=== PATIENT | male | born 1955 | race American Indian/Alaskan Native ===

== ENCOUNTER 2016-11-29 16:28 | Inpatient (IN) | payer MEDICAID ==
[2016-11-29 16:28] VITALS: BMI 34.8
--- NOTE | 2016-11-29 16:36 | ED PDOC ---
Arrival/HPI - General Time Seen by Provider: 11/29/16 16:35 Historian: Patient - History of Present Illness Narrative History of Present Illness (Text): 11/29/16 16:36 This 61 yo male with pmh dm, htn, chronic leg swelling, presents to this ED c/o feeling generalized weakness, night sweats x 2 weeks. Patient stated symptoms has worsen last 7 days. Patient noted an Epidural injection on his lower back x 3 weeks ago. Patient stated he was feeling very weak, and dizzy that he almost "pass out" earlier today. Patient also stated GLEZ after climbing a few steps on his stairs. He noted a mild left lower back pain. Patient noted that he has never had a Nuclear stress test yet. Patient denies recent travel, cp, DEE, urinary symptoms, abdominal pain, n/v, cms , /GI incontinence, saddle anesthesia, urinary retention, rectal bleeding, hematuria, chills, sick contact, or trauma. Time/Duration: Other (see hpi) Context: Home Past Medical History - Provider Review Nursing Documentation Reviewed: Yes - Cardiac Hx Hypertension: Yes - Psychiatric Hx Substance Use: No Family/Social History - Physician Review Nursing Documentation Reviewed: Yes Family/Social History: Other (non-contributory) Smoking Status: no Hx Alcohol Use: No Hx Substance Use: No Allergies/Home Meds Allergies/Adverse Reactions: Allergies Iodine and Iodide Containing Produc Allergy (Verified 11/29/16 16:52) ANAPHYLAXIS shellfish derived Allergy (Verified 11/29/16 16:52) ANAPHYLAXIS Home Medications: Home Meds Medication Instructions Recorded Confirmed Unobtainable 11/29/16 11/29/16 Review of Systems - Review of Systems Constitutional: Normal. absent: Fatigue, Weight Change, Fevers, Night Sweats Eyes: Normal ENT: Normal Respiratory: Normal. absent: SOB, Cough Cardiovascular: GLEZ, Syncope (near syncope). absent: Chest Pain, Palpitations, Edema, Calf Pain, Orthopnea Gastrointestinal: Normal. absent: Abdominal Pain, Nausea, Vomiting Genitourinary Male: Normal. absent: Dysuria, Frequency, Hematuria Musculoskeletal: Back Pain. absent: Neck Pain Skin: Normal. absent: Rash Neurological: Dizziness, Other (generalized weakness). absent: Headache, Gait Changes, Speech Changes, Facial Droop, Disequilibrium, Seizure Endocrine: Normal Hemo/Lymphatic: Normal Psychiatric: Normal Physical Exam Vital Signs Temp Pulse Resp BP Pulse Ox 11/29/16 21:17 95 H 18 150/84 98 11/29/16 19:38 98 H 18 148/93 H 97 11/29/16 18:57 97.2 F L 11/29/16 16:36 97.5 F L 108 H 16 156/81 H 96 Temperature: Afebrile Blood Pressure: Normal Pulse: Regular Respiratory Rate: Normal Appearance: Positive for: Well-Appearing, Non-Toxic, Comfortable Pain Distress: None Mental Status: Positive for: Alert and Oriented X 3 - Systems Exam Head: Present: Atraumatic, Normocephalic Pupils: Present: PERRL Extroacular Muscles: Present: EOMI Conjunctiva: Present: Normal Mouth: Present: Moist Mucous Membranes Pharnyx: Present: Normal. No: ERYTHEMA, EXUDATE, TONSILS ENLARGED Neck: Present: Normal Range of Motion. No: Meningeal Signs, MIDLINE TENDERNESS , Paraspinal Tenderness, Lymphadenopathy Respiratory/Chest: Present: Clear to Auscultation, Good Air Exchange. No: Respiratory Distress, Accessory Muscle Use, Wheezes, Retracting, Rhonchi Cardiovascular: Present: Regular Rate and Rhythm, Normal S1, S2. No: Murmurs Abdomen: Present: Normal Bowel Sounds. No: Tenderness, Distention, Peritoneal Signs, Rebound, Guarding Back: Present: Normal Inspection. No: CVA Tenderness, Midline Tenderness, Paraspinal Tenderness Upper Extremity: Present: Normal Inspection, Normal ROM, Neurovascularly Intact , Capillary Refill < 2s. No: Cyanosis, Edema Lower Extremity: Present: Normal Inspection, Edema (b/l trace edema), NORMAL PULSES, Normal ROM, Neurovascularly Intact, Capillary Refill < 2 s. No: CALF TENDERNESS, Cyanosis, Donna's Sign, Tenderness, Swelling, Erythema Neurological: Present: GCS=15, CN II-XII Intact, Speech Normal, Motor Func Grossly Intact, Normal Sensory Function, Normal Cerebellar Funct, Gait Normal Skin: Present: Warm, Dry, Normal Color. No: Rashes Psychiatric: Present: Alert, Oriented x 3, Normal Insight, Normal Concentration Medical Decision Making ED Course and Treatment: 11/29/16 20:[address] Mansfield regarding patient c/o generalized weakness, GLEZ, and near syncope. Labs shows hypokalemia. I also read of L-spine which described a 5.8 mm distal ureter kidney stone. Dr. Mansfield recommended consult for Dr. Green, Nailer Operator, and he agrees for observation Re-evaluation Time: 20:36 Reassessment Condition: Re-examined, Improving,but remains with symptoms - Lab Interpretations Lab Results: 11/29/16 17:00 11/29/16 17:00 Lab Results 11/29/16 20:40: Urine Color Straw, Urine Appearance Clear, Urine pH 6.5, Ur Specific [place] 1.010, Urine Protein Negative, Urine Glucose (UA) Negative, Urine Ketones Negative, Urine Blood Trace-lysed H, Urine Nitrate Negative, Urine Bilirubin Negative, Urine Urobilinogen 0.2, Ur Leukocyte Esterase Negative , Urine RBC 0 - 2, Urine WBC Negative, Ur Epithelial Cells 0 - 2, Urine Bacteria Neg 11/29/16 17:00: Sodium 139, Chloride 103, Potassium 3.3 L, Carbon Dioxide 23, Anion Gap 16, BUN 11, Creatinine 0.8, Est GFR ( Amer) > 60, Est GFR (Non- Af Amer) > 60, Random Glucose 88, Calcium 9.4, Phosphorus 2.4 L, Magnesium 1.8, Total Bilirubin 0.7, AST 57, ALT 56, Alkaline Phosphatase 110, Lactate Dehydrogenase 513, Total Creatine Kinase 164, Troponin I < 0.01, NT-Pro-B Natriuret Pep 29.5, Total Protein 8.0, Albumin 4.3, Globulin 3.7, Albumin/ Globulin Ratio 1.2 11/29/16 17:00: pO2 64 H, VBG pH 7.37, VBG pCO2 45.0, VBG HCO3 26.0, VBG Total CO2 27.4, VBG O2 Sat (Calc) 94.8 H, VBG Base Excess 0.3, VBG Potassium 3.3 L, Sodium 139.0, Chloride 104.0, Glucose 87, Lactate 2.1, FiO2 21.0, Venous Blood Potassium 3.3 L 11/29/16 17:00: PT 11.6, INR 1.07, APTT 27.8 11/29/16 17:00: WBC 9.6, RBC 5.33, Hgb 14.6, Hct 42.7, MCV 80.1, MCH 27.4, MCHC 34.2, RDW 13.2, Plt Count 222, MPV 10.2, Gran % 72.7 H, Lymph % (Auto) 18.4 L, [place] % (Auto) 7.0 H, Eos % (Auto) 1.6, Baso % (Auto) 0.3, Gran # 6.98 H, Lymph # 1.8, [place] # 0.7 H, Eos # 0.2, Baso # 0.03 11/29/16 16:40: POC Glucose (mg/dL) 74 - RAD Interpretation Narrative RAD Interpretations (Text): 11/29/16 18:45 Accession No. : [id number] Patient Name / ID : YUN MADISON / [id number] Exam Date : 11/29/2016 17:50:16 ( Approved ) Study Comment : Sex / Age : M / 61Y Creator : Kelvin Guo MD Dictator : [employer] Cle[employer] Agent : Ehr Trainer : Kelvin Guo MD Approver2 : Report Date : 11/29/2016 18:06:31 My Comment : PROCEDURE: CT scan brain dated 11/29/2016 HISTORY: Dizziness. COMPARISON: No prior study available comparison TECHNIQUE: Axial computed tomography images were obtained through the head/brain without intravenous contrast. Radiation dose: Total exam DLP = 843.77 mGy-cm. This CT exam was performed using one or more of the following dose reduction techniques: Automated exposure control, adjustment of the mA and/or kV according to patient size, and/or use of iterative reconstruction technique. FINDINGS: HEMORRHAGE: No acute parenchymal, subarachnoid or extra-axial hemorrhage. BRAIN: Suspect minor chronic periventricular white matter ischemic changes. Questionable artifact versus a few tiny chronic appearing bilateral basal nuclei lacunar type infarcts Ventricular and sulcal size are within range of normal for this patient's stated age. No obvious parenchymal nor extra-axial masses or collections identified on this noncontrast study. Minor vascular calcifications are present. VENTRICLES: No obstructive hydrocephalus. . Small cavum septum pellucidum and vergae. 1st CALVARIUM: There are no acute calvarial fractures PARANASAL SINUSES: Unremarkable as visualized. No significant inflammatory changes. MASTOID AIR CELLS: Unremarkable as visualized. No inflammatory changes. OTHER FINDINGS: Orbits and contents grossly unremarkable IMPRESSION: No acute intracranial hemorrhage. Suspect minimal chronic periventricular white matter ischemic changes. . Questionable artifact versus a few tiny chronic appearing bilateral basal nuclei lacunar type infarcts 11/29/16 18:46 Accession No. : [id number] Patient Name / ID : YUN MADISON / [id number] Exam Date : 11/29/2016 17:52:19 ( Approved ) Study Comment : Sex / Age : M / 61Y Creator : Lavon COATES Dictator : [employer] Cle[employer] Agent : Ehr Trainer : Kelvin Guo MD Approver2 : Report Date : 11/29/2016 17:59:21 My Comment : PROCEDURE: CT scan lumbar spine dated 11/29/2016 HISTORY: Back pain. COMPARISON: No prior study available for comparison TECHNIQUE: Contiguous helical/transaxial computed tomography images were obtained of the lumbar spine without the use of intravenous contrast. Coronal and sagittal reformatted images were created and reviewed. Radiation dose: Total exam DLP = 1514.16 mGy-cm. This CT exam was performed using one or more of the following dose reduction techniques: Automated exposure control, adjustment of the mA and/or kV according to patient size, and/or use of iterative reconstruction technique. FINDINGS: VERTEBRAE: The current study reveals no acute compression fractures no retropulsed fragments. Aside from minor multilevel fish-mouth endplate deformities, the vertebral bodies exhibit normal stature. Vertebral bodies and facets normally aligned. . DISCS/SPINAL CANAL/NEURAL FORAMINA: L1-2: Disc space height relatively maintained. There are no disc herniations nor significant disc bulges. Central canal and exit foramina adequate. L2-3: Disc space height maintained. There is minor broad-based bulge of the posterior annulus slightly asymmetrically larger on the left than right with some minimal extension into the proximal inferior margin of the left exit foramen. There does appear to be some slight flattening ventral surface of the thecal sac more so on the left side however the central canal appears quite capacious. Facet joints are slightly overgrown. Exit foramina are also adequate. L3-4: Disc space height maintained minimal broad-based bulge of the posterior annulus results in some flattening of the ventral surface of the thecal sac. The overall central canal is quite capacious. Facets joints are slightly overgrown. Proximal exit foramina appear adequate. . . L4-5: Disc space height maintained. Minor broad-based bulge of the posterior annulus also results in some flattening of the ventral surface of thecal sac however the overall central canal is adequate at this level. Facets are mildly hypertrophic more so on the left side. Central canal and exit foramina are adequate. L5-S1: Disc space height maintained. No disc herniation or significant disc bulge. Facets are slightly overgrown. Central canal and exit foramina adequate. . Note made of a small round/ elliptical shaped sclerotic focus within the right knee iliac bone that probably represents a small bone island or osteoma. . Similar smaller focus seen in the left aspect of the sacrum PARASPINAL SOFT TISSUES: Paraspinal soft tissues unremarkable. OTHER FINDINGS: There is a small nonobstructing calcification upper pole right kidney. Due to motion artifact exact size name cannot be determined though this is estimated at approximately 3.5 mm. Additionally, there is a large partially exophytic cyst posterior upper pole left kidney that measures approximately 6.3 cm CC x 5.6 cm AP x 5.1 cm trans. A smaller cyst anteromedial aspect upper pole left kidney is also present measuring approximately 2.84 x 1.8 cm consider followup ultrasound renal ultrasound for further evaluation if necessary. . Note is also made of an approximately 5.8 mm elliptical shaped calculus within the distal left ureter however no significant hydronephrosis identified. Prostate gland appears enlarged measuring approximately 5.44 cm in transverse dimension. IMPRESSION: No acute fractures. Very minor multilevel degenerative spondylosis. . There is a 5.8 mm calculus in the distal left ureter with no significant left- sided hydronephrosis so far as can be seen. There are least 2 left renal cysts. . Small nonobstructing calculus upper pole right kidney Small nonobstructing calculus Radiology Orders: 11/29/16 16:52 CHEST PORTABLE [RAD] Stat 11/29/16 16:54 HEAD W/O CONTRAST [CT] Stat 11/29/16 16:59 LUMBAR SPINE W/O CONTRAST [CT] Stat - EKG Interpretation Interpreted by ED Physician: Yes (Sinus tachycardia @ 112 bpm. Normal interval) Type: 12 lead EKG Comparison: No previous EKG avail. - Medication Orders Current Medication Orders: Discontinued Medications Sodium Chloride (Sodium Chloride 0.9%) 500 mls @ 999 mls/hr IV .Q31M STA Stop: 11/29/16 17:25 Last Admin: 11/29/16 17:35 Dose: 999 mls/hr eMAR Start Stop Document 11/29/16 17:35 (Rec: 11/29/16 17:35 [facility] [id number] Intravenous Solution Start Date 11/29/16 Start Time 17:35 Potassium Chloride (Potassium Chloride Oral Soln) 40 meq PO STAT STA Stop: 11/29/16 17:42 Last Admin: 11/29/16 18:15 Dose: 40 meq Disposition/Present on Arrival - Present on Arrival Any Indicators Present on Arrival: No History of DVT/PE: No History of Uncontrolled Diabetes: No Urinary Catheter: No History Surgical Site Infection Following: None - Disposition Have Diagnosis and Disposition been Completed?: Yes Diagnosis: Near syncope, Generalized weakness, Ureterolithiasis Disposition: HOSPITALIZED Disposition Time: 20:52 Patient Plan: Observation Patient Problems: Current Active Problems Problem Status Onset Generalized weakness Acute Near syncope Acute Ureterolithiasis Acute Condition: STABLE
[2016-11-29] MEDS ORDERED: Sodium Chloride 0.9% 500 ML IV STA (16:55)
[2016-11-29 17:30] LABS: BASO # 0.03 K/mm3 (0.0-2.0); BASO % 0.3 % (0.0-3.0); EOS # 0.2 (0.0-0.7); EOS % 1.6 % (1.5-5.0); GRAN # 6.98 (1.4-6.5); GRAN % 72.7 % (50.0-68.0); HEMATOCRIT 42.7 % (42.0-52.0); LYMPH # 1.8 (1.2-3.4); LYMPH % 18.4 % (22.0-35.0); MEAN CELL VOLUME 80.1 fl (80.0-105.0); MEAN CORPUSCULAR HEMOGLOBIN 27.4 pg (25.0-35.0); MEAN CORPUSCULAR HGB CONC 34.2 g/dl (31.0-37.0); MEAN PLATELET VOLUME 10.2 fl (7.0-11.0); MONO # 0.7 (0.1-0.6); RED CELL DISTRIBUTION WIDTH 13.2 % (11.5-14.5); WHITE BLOOD COUNT 9.6 10^3/ul (4.5-11.0)
[2016-11-29 17:34] LABS: ALB/GLOB RATIO 1.2 (1.1-1.8); ALKALINE PHOSPHATASE 110 U/L (38-126); ALT/SGPT 56 U/L (7-56); AST/SGOT 57 U/L (17-59); BILIRUBIN,TOTAL 0.7 mg/dL (0.2-1.3); BLOOD UREA NITROGEN 11 mg/dL (7-21); CALCIUM 9.4 mg/dL (8.4-10.5); CARBON DIOXIDE 23 mmol/L (21-33); CHLORIDE 103 mmol/L (98-107); GFR AFRICAN-AMERICAN > 60; GLUCOSE,RANDOM 88 mg/dL (70-110); MAGNESIUM 1.8 mg/dL (1.7-2.2); PHOSPHOROUS 2.4 mg/dL (2.5-4.5); POTASSIUM 3.3 mmol/L (3.6-5.0); SODIUM 139 mmol/L (132-148)
[2016-11-29 17:35] LABS: INR 1.07 (0.93-1.08); PARTIAL THROMBOPLASTIN TIME 27.8 Seconds (23.7-30.8)
[2016-11-29 17:37] LABS: VENOUS BLOOD GAS BASE EXCESS 0.3 mmol/L (0.0-2.0); VENOUS BLOOD PH 7.37 (7.32-7.43)
[2016-11-29] MEDS ORDERED: Potassium Chloride 40 mEq/30 ml LIQ UD PO STA (17:41)
[2016-11-29 17:48] LABS: TROPONIN I < 0.01 ng/mL
--- NOTE | 2016-11-29 18:08 | CT ---
PROCEDURE: CT scan brain dated 11/29/2016 HISTORY: Dizziness. COMPARISON: No prior study available comparison TECHNIQUE: Axial computed tomography images were obtained through the head/brain without intravenous contrast. Radiation dose: Total exam DLP = 843.77 mGy-cm. This CT exam was performed using one or more of the following dose reduction techniques: Automated exposure control, adjustment of the mA and/or kV according to patient size, and/or use of iterative reconstruction technique. FINDINGS: HEMORRHAGE: No acute parenchymal, subarachnoid or extra-axial hemorrhage. BRAIN: Suspect minor chronic periventricular white matter ischemic changes. Questionable artifact versus a few tiny chronic appearing bilateral basal nuclei lacunar type infarcts Ventricular and sulcal size are within range of normal for this patient's stated age. No obvious parenchymal nor extra-axial masses or collections identified on this noncontrast study. Minor vascular calcifications are present. VENTRICLES: No obstructive hydrocephalus. . Small cavum septum pellucidum and vergae. 1st CALVARIUM: There are no acute calvarial fractures PARANASAL SINUSES: Unremarkable as visualized. No significant inflammatory changes. MASTOID AIR CELLS: Unremarkable as visualized. No inflammatory changes. OTHER FINDINGS: Orbits and contents grossly unremarkable IMPRESSION: No acute intracranial hemorrhage. Suspect minimal chronic periventricular white matter ischemic changes. . Questionable artifact versus a few tiny chronic appearing bilateral basal nuclei lacunar type infarcts
--- NOTE | 2016-11-29 18:29 | CT ---
PROCEDURE: CT scan lumbar spine dated 11/29/2016 HISTORY: Back pain. COMPARISON: No prior study available for comparison TECHNIQUE: Contiguous helical/transaxial computed tomography images were obtained of the lumbar spine without the use of intravenous contrast. Coronal and sagittal reformatted images were created and reviewed. Radiation dose: Total exam DLP = 1514.16 mGy-cm. This CT exam was performed using one or more of the following dose reduction techniques: Automated exposure control, adjustment of the mA and/or kV according to patient size, and/or use of iterative reconstruction technique. FINDINGS: VERTEBRAE: The current study reveals no acute compression fractures no retropulsed fragments. Aside from minor multilevel fish-mouth endplate deformities, the vertebral bodies exhibit normal stature. Vertebral bodies and facets normally aligned. . DISCS/SPINAL CANAL/NEURAL FORAMINA: L1-2: Disc space height relatively maintained. There are no disc herniations nor significant disc bulges. Central canal and exit foramina adequate. L2-3: Disc space height maintained. There is minor broad-based bulge of the posterior annulus slightly asymmetrically larger on the left than right with some minimal extension into the proximal inferior margin of the left exit foramen. There does appear to be some slight flattening ventral surface of the thecal sac more so on the left side however the central canal appears quite capacious. Facet joints are slightly overgrown. Exit foramina are also adequate. L3-4: Disc space height maintained minimal broad-based bulge of the posterior annulus results in some flattening of the ventral surface of the thecal sac. The overall central canal is quite capacious. Facets joints are slightly overgrown. Proximal exit foramina appear adequate. . . L4-5: Disc space height maintained. Minor broad-based bulge of the posterior annulus also results in some flattening of the ventral surface of thecal sac however the overall central canal is adequate at this level. Facets are mildly hypertrophic more so on the left side. Central canal and exit foramina are adequate. L5-S1: Disc space height maintained. No disc herniation or significant disc bulge. Facets are slightly overgrown. Central canal and exit foramina adequate. . Note made of a small round/ elliptical shaped sclerotic focus within the right knee iliac bone that probably represents a small bone island or osteoma. . Similar smaller focus seen in the left aspect of the sacrum PARASPINAL SOFT TISSUES: Paraspinal soft tissues unremarkable. OTHER FINDINGS: There is a small nonobstructing calcification upper pole right kidney. Due to motion artifact exact size name cannot be determined though this is estimated at approximately 3.5 mm. Additionally, there is a large partially exophytic cyst posterior upper pole left kidney that measures approximately 6.3 cm CC x 5.6 cm AP x 5.1 cm trans. A smaller cyst anteromedial aspect upper pole left kidney is also present measuring approximately 2.84 x 1.8 cm consider followup ultrasound renal ultrasound for further evaluation if necessary. . Note is also made of an approximately 5.8 mm elliptical shaped calculus within the distal left ureter however no significant hydronephrosis identified. Prostate gland appears enlarged measuring approximately 5.44 cm in transverse dimension. IMPRESSION: No acute fractures. Very minor multilevel degenerative spondylosis. . There is a 5.8 mm calculus in the distal left ureter with no significant left-sided hydronephrosis so far as can be seen. There are least 2 left renal cysts. . Small nonobstructing calculus upper pole right kidney Small nonobstructing calculus
--- NOTE | 2016-11-29 18:32 | RAD ---
HISTORY: GLEZ COMPARISON: No prior. FINDINGS: LUNGS: No active pulmonary disease. PLEURA: No significant pleural effusion identified, no pneumothorax apparent. CARDIOVASCULAR: Prominent cardiac silhouette identified. No pulmonary derangement identified. OSSEOUS STRUCTURES: No significant abnormalities. VISUALIZED UPPER ABDOMEN: Normal. OTHER FINDINGS: None. IMPRESSION: No acute infiltrate or pleural effusion bilaterally. Prominent cardiac silhouette identified.
[2016-11-29 21:09] LABS: PH,URINE 6.5 (4.7-8.0); URINE BILIRUBIN NEGATIVE (NEGATIVE); URINE BLOOD TRACE-LYSED (NEGATIVE); URINE GLUCOSE (UA) NEGATIVE (NEGATIVE); URINE KETONE NEGATIVE (NEGATIVE); URINE LEUKOCYTE ESTERASE NEGATIVE Leu/uL (NEGATIVE); URINE PROTEIN NEGATIVE mg/dL (<30 mg/dL); URINE UROBILINOGEN 0.2 E.U./dL (<1 E.U./dL)
[2016-11-29 21:09] LABS: VENOUS BLOOD GAS BASE EXCESS -1.2 mmol/L (0.0-2.0); VENOUS BLOOD PH 7.39 (7.32-7.43)
[2016-11-29 21:10] LABS: URINE APPEARANCE CLEAR (CLEAR); URINE COLOR STRAW (YELLOW)
[2016-11-29 21:17] LABS: URINE BACTERIA NEG (NEG); URINE EPITHELIAL CELLS 0 - 2 /hpf (0-5); URINE RBC 0 - 2 /hpf (0-2); URINE WBC NEGATIVE /hpf (0-6)
[2016-11-29] MEDS ORDERED: Sodium Chloride 0.9% 1,000 ML IV STA (22:08)
--- NOTE | 2016-11-30 08:41 | CARD ---
APPROVED REPORT EKG Measurement Heart [id number] <Conclusion> Sinus tachycardia Moderate voltage criteria for LVH NSSTW changes Mildly prolonged QTc
[2016-11-30 13:48] LABS: HEMATOCRIT 38.6 % (42.0-52.0); MEAN CELL VOLUME 79.6 fl (80.0-105.0); MEAN CORPUSCULAR HGB CONC 33.9 g/dl (31.0-37.0); MEAN PLATELET VOLUME 9.8 fl (7.0-11.0); RED CELL DISTRIBUTION WIDTH 13.1 % (11.5-14.5); WHITE BLOOD COUNT 5.6 10^3/ul (4.5-11.0)
[2016-11-30 13:53] LABS: BLOOD UREA NITROGEN 8 mg/dL (7-21); CALCIUM 8.6 mg/dL (8.4-10.5); CARBON DIOXIDE 23 mmol/L (21-33); CHLORIDE 105 mmol/L (98-107); GFR AFRICAN-AMERICAN > 60; GLUCOSE,RANDOM 151 mg/dL (70-110); POTASSIUM 3.6 mmol/L (3.6-5.0); SODIUM 138 mmol/L (132-148)
--- NOTE | 2016-11-30 14:35 | CON ---
NEUROLOGY CONSULT DATE: 11/30/2016 CHIEF COMPLAINT: Near syncope. HISTORY OF PRESENT ILLNESS: This is a 61-year-old man with history of type 2 diabetes mellitus, hypertension, chronic leg swelling, who presents with generalized weakness and night sweats past 3 days. He said he had an epidural injection of his lower back for his lumbosacral neuritis 3 weeks ago and since then, he started feeling generalized weakness, dizzy and lightheadedness, almost passed out earlier that day. Currently, he is moving all extremities equally. No neurological deficits seen on exam except for evidence of diabetic peripheral neuropathy. His vital signs are stable. He has low potassium at 3.3, otherwise doing well. No further dizzy episodes at this time. CT head showed no acute intracranial abnormalities and lumbar CT spine showed spondylolisthesis. PAST MEDICAL HISTORY: History of type 2 diabetes mellitus, hypertension, chronic leg swelling, chronic back pain. REVIEW OF SYSTEMS: A 14-point review of systems is negative except as per the HPI. ALLERGIES: ALLERGIC TO IODINE CONTAINING PRODUCTS, SHELLFISH . MEDICATIONS: Reviewed by nurse per reconciliation sheet. SOCIAL HISTORY: No illicit drug use, smoking, or EtOH abuse. PHYSICAL EXAMINATION VITAL SIGNS: Temperature 98.6, pulse rate of 93, blood pressure 130/81, respiratory rate of 20, oxygen saturation 98% via room air. GENERAL: The patient is sitting up in bed, in no acute distress. HEENT: Atraumatic and normocephalic. PERRLA. Extraocular muscles are intact. NECK: Supple. No JVD. No adenopathy noted. LUNGS: Clear to auscultation. No adventitious sounds. HEART: S1 and S2 normal rate and rhythm. No murmurs, rubs, or gallops. ABDOMEN: Soft, nontender, and nondistended. Bowel sounds are present. EXTREMITIES: No clubbing. No cyanosis. Peripheral pulses 2+ felt bilaterally. NEUROLOGIC: The patient is alert and oriented to person, place, month, and year. Speech is fluent without any errors. Cranial nerves II through XII are intact. Motor exam: Moves all extremities equally. Toes downgoing bilaterally. Sensory exam: Light touch, pinprick, proprioception decreased up to the calves bilaterally. Decreased vibration of the toes. DTRs are 2+ throughout, 1 at the knees and ankles. Coordination: [id number] intact. Gait is deferred for now. LABORATORY DATA: Sodium 139, potassium 3.3, chloride 102, carbon dioxide 22, BUN of 11, creatinine 0.8, and random glucose of 88. ASSESSMENT: This is a 61-year-old man with history of type 2 diabetes mellitus, hypertension, chronic leg swelling, who came with generalized weakness, night sweats, and lightheadedness, and felt like passing out, likely secondary to vasovagal component. He has a history of chronic back pain where he had an epidural injection 3 weeks ago and has not been feeling well since then. CT lumbar spine showed no acute abnormalities, just some chronic multilevel degenerative lumbar listhesis. CAT scan of the head showed negative. At this time, he does have evidence of diabetic peripheral neuropathy on examination. RECOMMENDATION: At this time, 1. Orthostatic vital signs. 2. Adequate hydration. 3. PT evaluation. 4. Continue current present medical management. Mani Duron MD
[2016-12-01 08:01] LABS: HEMATOCRIT 41.6 % (42.0-52.0); MEAN CELL VOLUME 79.8 fl (80.0-105.0); MEAN CORPUSCULAR HEMOGLOBIN 27.1 pg (25.0-35.0); MEAN CORPUSCULAR HGB CONC 33.9 g/dl (31.0-37.0); MEAN PLATELET VOLUME 10.1 fl (7.0-11.0); RED CELL DISTRIBUTION WIDTH 13.4 % (11.5-14.5); WHITE BLOOD COUNT 5.8 10^3/ul (4.5-11.0)
[2016-12-01 08:12] LABS: ALB/GLOB RATIO 1.1 (1.1-1.8); ALKALINE PHOSPHATASE 86 U/L (38-126); ALT/SGPT 44 U/L (7-56); AST/SGOT 29 U/L (17-59); BILIRUBIN,TOTAL 0.6 mg/dL (0.2-1.3); BLOOD UREA NITROGEN 8 mg/dL (7-21); CARBON DIOXIDE 26 mmol/L (21-33); CHLORIDE 105 mmol/L (98-107); GFR AFRICAN-AMERICAN > 60; GLUCOSE,RANDOM 104 mg/dL (70-110); POTASSIUM 3.5 mmol/L (3.6-5.0); SODIUM 142 mmol/L (132-148); TOTAL PROTEIN 7.1 g/dL (5.8-8.3)
[2016-12-01] MEDS ORDERED: Piperacillin/Tazobact 2.25gm 2.25 GM/100 ML BAG IVPB STA (11:02)
[2016-12-01 11:42] LABS: IRON 75 ug/dL (45-180)
[2016-12-01] MEDS: Meropenem 1g/NS 100mL IVPB 1 GM/100 ML PIGGYBACK IVPB SCH ×3 (11:54→20:25)
--- NOTE | 2016-12-01 12:46 | CON ---
DATE: 12/01/2016 LOCATION: The patient seen in 368, bed #2. CHIEF COMPLAINT: Positive blood cultures for gram negative devan x1 deterioration. HISTORY OF PRESENT ILLNESS: This is a 61-year-old male with obesity with BMI of 35, who has history of chronic back pain who had an epidural injection approximately 3 weeks ago, the patient with hypertension and diabetes and gallbladder stones and kidney stone, who has now admitted with chills at home and fevers from several days. In the emergency room, blood cultures were drawn and reported as gram negative devan bacteremia, Infectious Disease consultation requested. The patient at this time states he has no abdominal pain. No nausea, no vomiting. He has no back pain and no dysuria, frequency, no joint pain, no rash, no headache. He says that absolutely nothing wrong with him and he wants to go home today. PAST MEDICAL HISTORY: Significant for hypertension, diabetes, obesity, BMI of 35, history of gallbladder stone, history of kidney stone, and history of chronic back pain. PAST SURGICAL HISTORY: The patient states that he has never had any operations. He did have epidural injection 3 weeks ago. ALLERGIES: THE PATIENT STATES HE IS ALLERGIC TO IODINE AND SHELLFISH. HE IS NOT CLEAR WHAT HAPPENS WHEN HE TAKES THOSE THINGS AND HOW HE KNOWS THAT HE IS ALLERGIC TO THAT. MEDICATIONS: At home, include, the patient to be on metformin and amlodipine. PHYSICAL EXAMINATION GENERAL: He is in bed, very anxious, he wants to be discharged, he wants to go home. He states he does not want any test, nurse . VITAL SIGNS: Temperature of 98, blood pressure is 127/80, respiratory rate of 20, heart rate of 95 to 108, HEENT: Unremarkable. NECK: Supple. LUNGS: Decreased breath sounds. HEART: Normal S1 and S2. ABDOMEN: Soft and nontender. No rebound. No guarding. No masses. Completely benign abdomen. SPINE: There is no point tenderness. LABORATORY DATA: Laboratory examination reveals white count of 9.6, hemoglobin of 14, platelets of 222, with 72% granulocytosis. Coagulation is noted. Chemistries reveals BUN of 11, creatinine of 0.8. Urinalysis is noted. Microbiology reveals the gram negative devan in blood. The urine culture have no growth. Urinalysis is negative wbc's, negative bacteria, and trace/h, essentially unremarkable urinalysis. The patient had a CAT scan of the spine, the results were noted. Chest x-ray is reported to be negative. ASSESSMENT AND PLAN: This is a 61-year-old male with obesity with body mass index of 35. He has never had any travel history. He was born in [place] and he lives with his female ham marker and there are 9 children, with a history of gallbladder stone, kidney stone, chronic back pain status post epidural injection 3 weeks ago. There were no pain, now presenting with gram negative devan bacteremia, must rule out genitourinary versus gastrointestinal versus the spine. We will treat the patient with meropenem and check on the identification, the gram negative devan in blood and repeat the urinalysis and urine culture. We ordered an HIV and we ordered a CAT scan of the abdomen and pelvis, would consider should have an MRI of the spine to rule out any correction, although, he has a no point tenderness and no pain of the back at all. We will check on the culture results. We will make further recommendation. Case discussed with Dr. Brian at length. I have been explained fully for the patient his seriousness of his illness with a gram negative devan bacteremia and strongly discouraged him to be go home and recommend him to stay and have some further workup and antibiotic treatment. Ronald Varma MD
--- NOTE | 2016-12-01 15:15 | CON ---
DATE: 12/01/2016 CARDIOLOGY CONSULTATION HISTORY OF PRESENT ILLNESS: The patient is a 61-year-old male who presents with 1 week of progressive dizziness with no loss of consciousness. The patient's past medical history is notable for hypertension and diabetes mellitus. His symptoms coincided with his primary care doctor giving him a double medications for blood pressure for antihypertensive medication since he has stopped that his symptoms are relieved. Denies chest pain, denies shortness of breath. No previous cardiac history noted. SOCIAL HISTORY: Denies smoking. REVIEW OF SYSTEMS: A 14-point review of systems was reviewed. All his symptoms are now resolved. No cardiac symptomatology is noted. PHYSICAL EXAMINATION: VITAL SIGNS: Blood pressure 130/70, heart rate in the 70s. NECK: Negative JVD. LUNGS: Without rales. HEART: S1, S2. EXTREMITIES: Without edema. LABORATORY DATA: Hemoglobin is 14.1. Chemistries, troponin is negative x1. CT scan of the head, no acute intracranial hemorrhage is noted. EKG is unremarkable. IMPRESSION: 1. Near syncope. 2. The symptoms may be related to his antihypertensive medications. 3. No evidence for acute coronary syndrome. 4. Diabetes mellitus. 5. History of hypertension. Given these findings, an echocardiogram has been ordered. From a cardiac perspective, the patient would like to do it as an outpatient. From a cardiac perspective, an outpatient echo and workup would be okay. Walter Joaquin MD
[2016-12-01 16:38] LABS: URINE BILIRUBIN NEGATIVE (NEGATIVE); URINE BLOOD SMALL (NEGATIVE); URINE GLUCOSE (UA) NEGATIVE (NEGATIVE); URINE KETONE NEGATIVE (NEGATIVE); URINE LEUKOCYTE ESTERASE NEGATIVE Leu/uL (NEGATIVE); URINE PROTEIN NEGATIVE mg/dL (<30 mg/dL); URINE UROBILINOGEN 0.2 E.U./dL (<1 E.U./dL)
[2016-12-01 16:45] LABS: URINE APPEARANCE CLEAR (CLEAR); URINE COLOR YELLOW (YELLOW)
[2016-12-01 16:51] LABS: URINE BACTERIA FEW (NEG); URINE RBC 0 - 2 /hpf (0-2)
[2016-12-01] MEDS ORDERED: Meropenem 1g/NS 100mL IVPB 1 GM/100 ML PIGGYBACK IVPB SCH (17:27)
--- NOTE | 2016-12-01 22:10 | HP ---
DATE: 11/30/2016 HISTORY OF PRESENT ILLNESS: Mr. Son is a 61-year-old male presented to the ED with back pain for 3 days. He had epidural given in the spin 3 weeks ago. He was feeling weak and passing out. He had difficulty climbing upstairs few steps. No nausea. No vomiting. He also complains of night sweat for the past 2 weeks. Blood culture and urine culture drawn in the ED. PAST MEDICAL HISTORY: Hypertension, chronic back pain, getting epidural injections, diabetes mellitus type 2, morbid obesity, gallstones, and renal stones. PAST SURGICAL HISTORY: Epidural injections 3 weeks ago. No surgical intervention. ALLERGIES: IODINE AND SHELLFISH. HOME MEDICATIONS: Metformin and amlodipine. REVIEW OF SYSTEMS: As per HPI. Rest of 12-point review of systems reviewed negative. PHYSICAL EXAMINATION GENERAL: Comfortable in bed, in no acute distress. VITAL SIGNS: Temperature 98.7, heart rate 80 per minute, blood pressure 120/70, respiratory rate 20 per minute and heart rate 100 per minute. HEENT: Normal. NECK: Supple. No lymphadenopathy. CHEST: Air entry present, equal and bilateral. No added sounds. CARDIOVASCULAR: S1 and S2 normal. No murmur. No gallop. ABDOMEN: Soft and nontender. No hepatosplenomegaly. EXTREMITIES: No edema. SPINE: Nontender. CENTRAL NERVOUS SYSTEM: Alert and oriented x3. No focal sensory or motor deficits. LABORATORY DATA: White count 5.6, hemoglobin 13, hematocrit 38.6, MCV 79 and platelet count 201. Sodium 142, potassium 3.5, chloride 305, BUN 8, and creatinine 0.7. AST 29 and ALT 44. ASSESSMENT: 1. Back pain. 2. Syncope. 3. Anemia. 4. Right renal cyst, renal stone. PLAN: He will be admitted to the hospital. Norvasc 10 mg daily and metformin 500 mg p.o. b.i.d. Cardiology consultation , Dr. Che requested. Neurology consultation, Dr. Duron requested for dizziness and passing out. CAT scan of the lumbar spine showed degenerative changes. It also showed right renal cyst. CAT scan of the head was unremarkable. Cardiac enzymes are not elevated. We will admit on tele bed for telemonitoring. We will continue to follow. We will follow on the blood culture and urine culture. Irene Brian MD
--- NOTE | 2016-12-01 22:18 | PN ---
DATE: 12/01/2016 SUBJECTIVE: He is comfortable in bed and in no acute distress. Blood culture showed gram negative rods. He remains afebrile. UA was negative. Urine culture has no growth. He had epidural injection in spine three weeks ago, CAT scan of the spine is unremarkable except renal system; the right kidney. Blood pressure elevated to 180 systolic. REVIEW OF SYSTEMS: As per HPI. Rest of 12-point review of systems reviewed negative. MEDICATIONS: Norvasc 10 mg daily and metformin 500 mg p.o. twice a day. PHYSICAL EXAMINATION GENERAL: Comfortable in bed, in no acute distress. VITAL SIGNS: Temperature 98.3, heart rate is 95 per minute, blood pressure 180 systolic, respiratory rate 18 per minute, oxygen saturation 98% on room air. HEENT: Normal. NECK: Supple. No lymphadenopathy. CHEST: Air entry present equal and bilateral. No added sound. CARDIOVASCULAR: S1 and S2 normal. No murmur. No gallop. ABDOMEN: Soft, nontender, and obese. EXTREMITIES: Bilateral lower extremity no edema. No rash. No petechia. SPINE: Nontender. CENTRAL NERVOUS SYSTEM: Alert and oriented x3, no focal, sensory, or motor deficit. LABORATORY DATA: White count 12.8, hemoglobin 14.1, hematocrit 41.6, MCV 79, and platelet count 208. Sodium 142, potassium 3.5, BUN 8, creatinine 0.7, iron 75% , AST 29, ALT 44 and PSA 3.2. ASSESSMENT: 1. Gram negative sepsis. 2. Syncope. 3. Right renal cyst. 4. Elevated blood pressure. PLAN: We will start hydralazine 10 mg q.8h. p.r.n. for systolic pressure greater than 160. IV consultation Dr. Varma requested meropenem started IV. CAT scan of the abdomen and pelvis ordered without contrast, he is allergic to iodine. Repeat blood cultures ordered stat and HIV testing ordered by Dr. Varma. Discussed with the patient and explained him that he needs to stay in the hospital until we have results of culture back. He did not understand why he has to stay in the hospital as he feels fine and wanted to go home. Finally he decided to stay after discussion. Discussed with the staff nurse. Irene rBian MD [facility] # [id number]
[2016-12-02] MEDS: Meropenem 1g/NS 100mL IVPB 1 GM/100 ML PIGGYBACK IVPB SCH ×3 (03:38→20:33)
[2016-12-02] MEDS ORDERED: Barium Sulfate Susp 2.1% w/v, 2.0% w/w 450 mL Bottle PO ONE (07:53)
--- NOTE | 2016-12-02 09:24 | PN ---
DATE: 12/02/2016 SUBJECTIVE: The patient is not complaining of chest pain, shortness of breath, or headache. PHYSICAL EXAMINATION VITAL SIGNS: Temperature 98.3, pulse 76, blood pressure 130/70, respirations 20. GENERAL: The patient is lying in bed, flat, comfortable. HEENT: No oral lesion. Anicteric sclerae. Moist mucosa. NECK: No JVD, adenopathy, or thyromegaly. CARDIOVASCULAR: S1 and S2, regular. No murmurs, rubs, or gallops. LUNGS: Clear to auscultation bilaterally. No wheeze, rales, or rhonchi. ABDOMEN: Bowel sounds are positive, soft, nontender and nondistended. EXTREMITIES: no cyanosis, clubbing or edema. LABS: Potassium 3.5 and creatinine 0.7. ASSESSMENT: 1. Sepsis secondary to gram negative rods. 2. Right renal cyst. 3. Diabetes type II. 4. Hypertension. PLAN: The patient is currently comfortable. He is on metformin for diabetes. He is going to continue with meropenem for antibiotics. He is on amlodipine for his hypertension. He had an echo that had been ordered, wait for the results. The patient is interested in going home. He says he will stay today and then will leave tomorrow. I did convince him to stay here until his culture results come back. Juan Wong MD
--- NOTE | 2016-12-02 10:41 | CP.PCM.PN ---
<Aleyda Farnk - Last Filed: 12/02/16 13:05> Subjective - Date & Time of Evaluation Date of Evaluation: 12/02/16 Time of Evaluation: 10:37 - Subjective Subjective: Neurology Progress Note for Venecia Rodriguez PGY2 Patient seen and examined at bedside. As per nursing, there were no acute overnight events. Patient states he feels well today. He has not had any episodes of dizziness. He denies headache, vision changes, fever/chills, CP, SOB , n/v/d, numbness/tingling, dysuria or hematuria. Patient reports at the time of dizziness, he was taking an increased dose of his BP medications. When he stopped his medications, his dizziness improved. Objective - Vital Signs/Intake and Output Vital Signs (last 24 hours): Temp Pulse Resp BP Pulse Ox 97.7 F 90 18 152/90 H 97 12/02/16 06:00 12/02/16 06:00 12/02/16 06:00 12/02/16 09:35 12/02/16 06:00 Intake and Output: 12/02/16 12/02/16 06:59 18:59 Intake Total 360 Balance 360 - Medications Medications: Current Medications Amlodipine Besylate (Norvasc) 10 mg PO DAILY [facility] Last Admin: 12/02/16 09:35 Dose: 10 mg Hydralazine HCl (Apresoline) 10 mg PO QID PRN PRN Reason: Systolic Blood Pressure Meropenem 1g/NS 100mL IVPB (Meropenem 1g/Ns 100ml Ivpb) 1 gm in 100 mls @ 100 mls/hr IVPB Q8H [facility] PRN Reason: Protocol Stop: 12/10/16 12:01 Last Admin: 12/02/16 03:38 Dose: 100 mls/hr Insulin Human Regular (Humulin R Low) 0 units SC ACBD [facility] PRN Reason: Protocol Metformin HCl (Glucophage) 500 mg PO BID [facility] Last Admin: 12/02/16 09:35 Dose: 500 mg Polyethylene Glycol (Miralax) 17 gm PO BID [facility] - Labs Labs: 12/01/16 07:30 12/01/16 07:30 PT 11.6 Seconds (9.9-11.8) 11/29/16 17:00 INR 1.07 (0.93-1.08) 11/29/16 17:00 APTT 27.8 Seconds (23.7-30.8) 11/29/16 17:00 - Constitutional Appears: No Acute Distress - Head Exam Head Exam: ATRAUMATIC, NORMAL INSPECTION, NORMOCEPHALIC - Eye Exam Eye Exam: EOMI, Normal appearance, PERRL Pupil Exam: NORMAL ACCOMODATION, PERRL - ENT Exam ENT Exam: Mucous Membranes Moist, Normal Exam - Neck Exam Neck Exam: Full ROM, Normal Inspection - Respiratory Exam Respiratory Exam: Clear to Ausculation Bilateral, NORMAL BREATHING PATTERN. absent: Rales, Rhonchi, Wheezes, Stridor - Cardiovascular Exam Cardiovascular Exam: REGULAR RHYTHM, +S1, +S2. absent: Gallop, Rubs, Murmur - GI/Abdominal Exam GI & Abdominal Exam: Soft, Normal Bowel Sounds. absent: Rigid, Tenderness, Mass , Rebound - Extremities Exam Extremities Exam: Full ROM, Normal Inspection, Pedal Edema. absent: Calf Tenderness - Neurological Exam Neurological Exam: Alert, Awake, CN II-XII Intact, Normal Gait, Oriented x3 Neuro motor strength exam: Left Upper Extremity: 5, Right Upper Extremity: 5, Left Lower Extremity: 5, Right Lower Extremity: 5 - Psychiatric Exam Psychiatric exam: Normal Affect, Normal Mood - Skin Skin Exam: Dry, Intact, Normal Color, Warm Assessment and Plan - Assessment and Plan (Free Text) Assessment: This is a 61Y M with PMH HTN, DM, chronic leg edema who came to ED for generalized weakness, night sweats and lightheadedness. Head CT was noted to be negative for acute pathology. CT lumbar spine did not show acute abnormalities. Orthostatics were also negative. Dizziness can be secondary to vasovagal or medication component. Patient is noted to have diabetic neuropathy. He was evaluated by Cardiology who recommends Echo. Of note, patient did have epidural injection of his lumbar spine 3 weeks ago. One blood culture was positive for Gram - rods. Repeat blood cultures pending. Patient is currently on Merrem. Plan: - Continue Adequate hydration - Continue physical therapy - Continue to maintain euglycemia (140-180s) - Continue cardiac and infectious work up Patient neurologically stable at this time. Patient can follow up with Dr. Duron as outpatient. Thank you for this consultation. Please re-consult if needed. Case seen, discussed and reviewed with attending, Dr. Oliverio Frank PGY2 <Mani Duron - Last Filed: 12/02/16 14:10> Objective - Vital Signs/Intake and Output Vital Signs (last 24 hours): Temp Pulse Resp BP Pulse Ox 97.7 F 91 H 18 140/84 97 12/02/16 06:00 12/02/16 12:47 12/02/16 06:00 12/02/16 12:47 12/02/16 06:00 Intake and Output: 12/02/16 12/02/16 06:59 18:59 Intake Total 360 Balance 360 - Medications Medications: Current Medications Amlodipine Besylate (Norvasc) 10 mg PO DAILY [facility] Last Admin: 12/02/16 09:35 Dose: 10 mg Atenolol (Tenormin) 25 mg PO DAILY [facility] Last Admin: 12/02/16 12:47 Dose: 25 mg Hydralazine HCl (Apresoline) 10 mg PO QID PRN PRN Reason: Systolic Blood Pressure Meropenem 1g/NS 100mL IVPB (Meropenem 1g/Ns 100ml Ivpb) 1 gm in 100 mls @ 100 mls/hr IVPB Q8H [facility] PRN Reason: Protocol Stop: 12/10/16 12:01 Last Admin: 12/02/16 12:08 Dose: 100 mls/hr Insulin Human Regular (Humulin R Low) 0 units SC ACBD [facility] PRN Reason: Protocol Metformin HCl (Glucophage) 500 mg PO BID [facility] Last Admin: 12/02/16 09:35 Dose: 500 mg Polyethylene Glycol (Miralax) 17 gm PO BID [facility] - Labs Labs: 12/01/16 07:30 12/01/16 07:30 PT 11.6 Seconds (9.9-11.8) 11/29/16 17:00 INR 1.07 (0.93-1.08) 11/29/16 17:00 APTT 27.8 Seconds (23.7-30.8) 11/29/16 17:00 Attending/Attestation - Attestation I have personally seen and examined this patient.: Yes I have fully participated in the care of the patient.: Yes I have reviewed all pertinent clinical information, including history, physical exam and plan: Yes
--- NOTE | 2016-12-02 12:19 | PN ---
DATE: 12/02/2016 LOCATION: The patient is in room 368, bed 2. REASON FOR CONSULTATION AND FOLLOWUP: Dizziness and hypertension. SUBJECTIVE: The patient denies any chest pain, shortness of breath, or palpitations. His dizziness has also improved. PHYSICAL EXAMINATION: VITAL SIGNS: Blood pressure 162/90, the patient had orthostatic blood pressure taken, which is 152/90 lying down, 155/89 sitting, and 155/95 standing, respirations 18, pulse 90, and temperature 97.7. When I took the pulse while examining, pulse was around 120 per minute. HEENT: Pupils normal. Conjunctivae normal. NECK: JVP low. Carotid equal. THORAX: AP diameter normal. LUNGS: Clear. CARDIOVASCULAR: S1 and S2. ABDOMEN: Soft and nontender. No organomegaly. EXTREMITIES: Leg edema, which was present on admission has improved. LABORATORY DATA: WBC 5.8, hemoglobin 14.1, hematocrit 41.6, and platelet 208. Sodium 142, potassium yesterday was 3.5, BUN 8, and creatinine 0.7. Random sugar 174. AST and ALT normal. DIAGNOSES: Dizziness, hypertension, diabetes mellitus, and near syncope. PLAN: The patient said when he stops the blood pressure medication, he felt better. Since the patient has sinus tachycardia resting, we will add atenolol 25 mg daily and blood pressure is still elevated. The patient is on amlodipine 10 mg p.o. daily and metformin 500 mg p.o. b.i.d. We will add also Ecotrin 1 tablet daily. We will check lipid panel and TSH also. The patient is going for echocardiogram today. We will follow with you. Marie Al MD
--- NOTE | 2016-12-02 13:56 | CP.PCM.PN ---
Subjective - Date & Time of Evaluation Date of Evaluation: 12/02/16 Time of Evaluation: 10:55 - Subjective Subjective: Comfortable, no fevers, refusing CT scan of the abdomen and pelvis. Objective - Vital Signs/Intake and Output Vital Signs (last 24 hours): Temp Pulse Resp BP Pulse Ox 97.7 F 90 18 152/90 H 97 12/02/16 06:00 12/02/16 06:00 12/02/16 06:00 12/02/16 09:35 12/02/16 06:00 Intake and Output: 12/02/16 12/02/16 06:59 18:59 Intake Total 360 Balance 360 - Medications Medications: Current Medications Amlodipine Besylate (Norvasc) 10 mg PO DAILY [facility] Last Admin: 12/02/16 09:35 Dose: 10 mg Hydralazine HCl (Apresoline) 10 mg PO QID PRN PRN Reason: Systolic Blood Pressure Meropenem 1g/NS 100mL IVPB (Meropenem 1g/Ns 100ml Ivpb) 1 gm in 100 mls @ 100 mls/hr IVPB Q8H [facility] PRN Reason: Protocol Stop: 12/10/16 12:01 Last Admin: 12/02/16 03:38 Dose: 100 mls/hr Insulin Human Regular (Humulin R Low) 0 units SC ACBD [facility] PRN Reason: Protocol Metformin HCl (Glucophage) 500 mg PO BID [facility] Last Admin: 12/02/16 09:35 Dose: 500 mg Polyethylene Glycol (Miralax) 17 gm PO BID [facility] - Labs Labs: 12/01/16 07:30 12/01/16 07:30 PT 11.6 Seconds (9.9-11.8) 11/29/16 17:00 INR 1.07 (0.93-1.08) 11/29/16 17:00 APTT 27.8 Seconds (23.7-30.8) 11/29/16 17:00 - Constitutional Appears: Non-toxic, No Acute Distress - Head Exam Head Exam: NORMAL INSPECTION - ENT Exam ENT Exam: Mucous Membranes Moist - Neck Exam Neck Exam: absent: Lymphadenopathy, Meningismus - Respiratory Exam Respiratory Exam: Decreased Breath Sounds - Cardiovascular Exam Cardiovascular Exam: +S1, +S2 - GI/Abdominal Exam GI & Abdominal Exam: Soft. absent: Tenderness Assessment and Plan - Assessment and Plan (Free Text) Plan: Assessment Gram negative bacilli bacteremia, need to rule out vertebral osteomyelitis in this patient who had an epidural injection for chronic back pain weeks ago, also need to R/O GI source; urine cx are negative making urine unlikely source HTN DM chronic leg edema obesity with BMI 36 history of gallbladder stones history of kidney stones Plan Continue Merrem pending identification and sensitivities of the gram negative bacilli in the blood; reviewed CT lumbar spine which also commented on the kidneys and there is no note of obstructing stones will get MRI lumbar area may also need CT A/P but patient is refusing will monitor clinically
[2016-12-02] MEDS: Insulin Reg-LOW-Coverage SC SCH (16:53)
[2016-12-02 17:40] VITALS: RESP 20
[2016-12-02] MEDS: POLYETHYLENE GLYCOL 3350 17 GM/Dose PACKET PO SCH (18:42)
[2016-12-03] MEDS: Meropenem 1g/NS 100mL IVPB 1 GM/100 ML PIGGYBACK IVPB SCH (04:56)
[2016-12-03 07:52] LABS: BLOOD UREA NITROGEN 11 mg/dL (7-21); CALCIUM 9.1 mg/dL (8.4-10.5); CARBON DIOXIDE 27 mmol/L (21-33); CHLORIDE 103 mmol/L (98-107); CHOLESTEROL 123 mg/dL (130-200); GFR AFRICAN-AMERICAN > 60; GLUCOSE,RANDOM 97 mg/dL (70-110); MAGNESIUM 1.7 mg/dL (1.7-2.2); PHOSPHOROUS 3.1 mg/dL (2.5-4.5); POTASSIUM 3.6 mmol/L (3.6-5.0); SODIUM 140 mmol/L (132-148)
[2016-12-03] MEDS: POLYETHYLENE GLYCOL 3350 17 GM/Dose PACKET PO SCH (09:10)
[2016-12-03] MEDS: Insulin Reg-LOW-Coverage SC SCH (09:10)
[2016-12-03 09:14] VITALS: BP 129/79
[2016-12-03 09:27] VITALS: PULSE 80; TEMP 98; O2SAT 97
--- NOTE | 2016-12-03 16:11 | PN ---
DATE: 12/03/2016 SUBJECTIVE: The patient is seen earlier this morning. He is anxious about being discharged. He wants to go home. PHYSICAL EXAMINATION VITAL SIGNS: The patient's temperature is 98, blood pressure is 130/80, respiratory rate 20, heart rate of 80. HEENT: Unremarkable. NECK: Supple. LUNGS: Decreased breath sounds. HEART: Normal S1 and S2. ABDOMEN: Soft. LABORATORY DATA: Reveals a white count of 5.8, hemoglobin of 14. Coagulation is noted and blood gases are noted. BUN of 11, creatinine of 0.8. PSA is 3.2. Urinalysis is noted. Serology: His RPR is negative. Hepatitis C is negative. HIV is nonreactive. Microbiology reveals blood cultures initially reported as gram negative, is not reported as Bacillus species 1 bottle and a repeat culture is negative. ASSESSMENT AND PLAN: A 61-year-old male admitted with what was believed to be a gram negative bacteremia, now reported as Bacillus 1 bottle. The patient's repeat culture is negative. The patient insists on being discharged today, Patient with hypertensive, diabetic, chronic leg edema, obesity, history of gallstones and kidney stones, on antibiotics. The patient is refusing CAT scan of the abdomen and pelvis. The patient is refusing further workup and case discussed with Dr. Song. Ronald Varma MD
--- NOTE | 2016-12-03 23:00 | DS ---
HISTORY OF PRESENT ILLNESS: This is a 61-year-old male who had come into the hospital with presyncope. The patient says he had night sweats for the past 2 weeks. He said they were worse over the last week. He denies any back pain currently. He says he had an epidural injection about 3 weeks ago and since then he has been fine. He had a CAT scan of his LS spine that did not show any signs of abscess or osteomyelitis. An MRI was ordered but he has refused, he understands that he may have infection in his back but does not wish to get an MRI. He also had blood cultures that showed one bottle of gram-negative rods. He had a CAT scan of the abdomen and pelvis ordered and he refused that as well. He says he does not wish to get a CAT scan. He understands that he may have an infection, this could be the cause of his symptoms but says that he had enough of the testing that was done, he feels better and does not wish to continue his testing. He understands that this can have senior care consequences as well. He is asking to be discharged home. He has no complaints of any headaches or dizziness. No nausea, no vomiting. He is going to have a stress test by Dr. Al as an outpatient. He is asking to be discharged home and he says he will followup with his primary care doctor in [place], Dr. Jeffrey Sr. He says he is also going to follow with his interior design assistant in [facility]. PHYSICAL EXAMINATION: VITAL SIGNS: Temperature is 98.3, pulse of 82, blood pressure is 103/73, and respirations 20. GENERAL: The patient is lying in bed, flat, comfortable. HEENT: No oral lesion. Anicteric sclerae. Moist mucosa. NECK: No JVD, adenopathy, or thyromegaly. CARDIOVASCULAR: S1 and S2, regular. No murmurs, rubs, or gallops. LUNGS: Clear to auscultation bilaterally. No wheeze, rales, or rhonchi. ABDOMEN: Bowel sounds are positive, soft, nontender and nondistended. EXTREMITIES: No cyanosis, clubbing or edema. ASSESSMENT: 1. Presyncope. 2. Right renal cyst. 3. Diabetes type-2. 4. Hypertension. 5. Chronic back pain. 6. Nephrolithiasis. 7. Obesity with a BMI of 36. PLAN: The patient is currently comfortable. He has metformin for his diabetes. He is receiving meropenem for antibiotics. His repeat blood cultures that were done are negative. Urine cultures are negative. He had one blood culture that showed bacillus species. He is on atenolol. The patient is going to continue with his atenolol. He is on Norvasc for his hypertension. He was advised to come back to the hospital if his symptoms worsen. He is going the diabetic diet. He is advised to follow with his primary care doctor and his interior design assistant. He is also going for a stress test as an outpatient with Dr. Al. CONDITION: Stable. Activities increase as tolerated. Juan Wong MD
--- NOTE | 2016-12-04 17:43 | CARD ---
APPROVED REPORT EXAM: Two-dimensional and M-mode echocardiogram with Doppler and color Doppler. INDICATION Syncope 2D DIMENSIONS Left Atrium (2D)3.7 (1.6-4.0cm)IVSd1.1 (0.7-1.1cm) LVDd4.4 (3.9-5.9cm)PWd1.3 (0.7-1.1cm) LVDs3.1 (2.5-4.0cm)FS (%) 30.4 % LVEF (%)58.0 (>50%) M-Mode DIMENSIONS Aortic Root3.90 (2.2-3.7cm)Aortic Cusp Exc.1.70 (1.5-2.0cm) Aortic Valve AoV Peak Wrnwngqm930.0cm/Buck Peak GR.15mmHgAI P 1/2 [id number] Mitral Valve MV E Wdebfgtj50.2cm/sMV A Qlsyslvr149.0cm/sE/A ratio0.6 TDI Lateral E' Peak V7.63cm/sMedial E' Peak V6.56cm/sE/Lateral E'10.2 E/Medial E'11.9 Pulmonary Valve PV Peak Uacxrdta163.0cm/sPV Peak Grad.8mmHg Tricuspid Valve TR Peak Zxjoghgw552fv/sRAP XXLXCGEH21onOnVF Peak Gr.14mmHg [id number] LEFT VENTRICLE The left ventricle is normal size. There is borderline to mild concentric left ventricular hypertrophy. The left ventricular function is normal.EF-55-60% There is normal LV segmental wall motion. Transmitral Doppler flow pattern is Grade III-reversible restrictive diastolic dysfunction. No left ventricle thrombus noted on this study. There is no ventricular septal defect visualized. There is no left ventricular aneurysm. There is no mass noted in the left ventricle. RIGHT VENTRICLE The right ventricle is normal size. There is normal right ventricular wall thickness. The right ventricular systolic function is normal. ATRIA The left atrium size is normal. The right atrium size is normal. The interatrial septum is intact with no evidence for an atrial septal defect. AORTIC VALVE The aortic valve is thickened but opens well. There is trace aortic regurgitation. There is no aortic valvular stenosis. There is no aortic valvular vegetation. MITRAL VALVE The mitral valve is thickened but opens well. Mitral regurgitation is trace. There is no mitral valve stenosis. There is no evidence of mitral valve prolapse. TRICUSPID VALVE The tricuspid valve leaflets are thickened , but open well. There is trace tricuspid regurgitation.RVSP-24 mmof hg. There is no tricuspid valve stenosis. There is no tricuspid valve prolapse or vegetation. PULMONIC VALVE The pulmonic valve is borderline thickened. There is trace pulmonic valvular regurgitation. There is no pulmonic valvular stenosis. GREAT VESSELS The aortic root is normal in size. The ascending aorta is normal in size. The pulmonary artery is normal. The IVC is normal in size and collapses >50% with inspiration. PERICARDIAL EFFUSION There is no pleural effusion. There is no pericardial effusion. <Conclusion> Normal Chamber Size. EF-55-60%. Trace MR/TR/PI/AR RVSP-24 mmof hg.
== END 2016-12-03 11:35 | disposition home or self-care (01) | DRG 901 ==
LOC: ED 16:28 → ERH 20:53 → 3RNO 22:02 → OBSVTOIN 12-02 13:16
PROVIDERS: ADMIT Internal Medicine Nephrology; ATTEND Internal Medicine Nephrology
DX: A41.50 Gram-negative sepsis, unspecified (principal); E11.42 Type 2 diabetes mellitus with diabetic polyneuropathy; N20.0 Calculus of kidney; I10 Essential (primary) hypertension; D64.9 Anemia, unspecified; M54.17 Radiculopathy, lumbosacral region; N28.1 Cyst of kidney, acquired; R55 Syncope and collapse; R42 Dizziness and giddiness; R60.0 Localized edema; E66.01 Morbid (severe) obesity due to excess calories; Z68.35 Body mass index [BMI] 35.0-35.9, adult; Z79.84 Long term (current) use of oral hypoglycemic drugs

== ENCOUNTER 2017-03-20 06:52 | Day surgery (SDC) | payer MEDICAID ==
[2017-02-17 11:34] VITALS: BMI 36.2
--- NOTE | 2017-02-27 00:04 | HP ---
REASON FOR ADMISSION: Left heart cath, possible angioplasty, abnormal stress test. BRIEF CLINICAL HISTORY: This is a 61-year-old morbidly obese male, body mass index 36.3 kg/m2, history of diabetes more than 3 years, history of hypertension more than 14 years, complaining of some vague type of chest pain off and on and dyspnea on exertion. The patient underwent a stress test at [facility] dated 12/19/2016 and walked for 4 minutes and 41 seconds and gets very short winded and fatigue, but the nuclear scan showed ischemia suggestive of inferior defect suspicious of ischemia, so the patient was scheduled for elective cardiac cath and possible angioplasty. PAST MEDICAL HISTORY: Significant for diabetes of three years, hypertension of 14 years, and obesity. SOCIAL HISTORY: Denies any smoking. Denies any history of alcohol abuse. CURRENT MEDICATIONS: The patient is taking at home losartan 100 mg daily, insulin 50 units subcutaneous daily, aspirin 325 mg daily, metformin 1 gm twice a day, alogliptin 12.5 mg twice a day, Norvasc 10 mg daily, and Amaryl 4 mg daily. ALLERGIES: ALLERGY TO IODINE AND IODINE CONTAINING PRODUCT AND SHELLFISH ALSO. PREVIOUS CARDIAC WORKUP: The patient had a stress test as mentioned dated on 12/19/2016. At that time, the patient walked for the treadmill 4 minutes and 41 seconds, it was stopped because of the fatigue, achieved 92% of the predicted heart rate. No chest pain. No ST-T changes noted except patient feeling fatigued. Nuclear scan shows probably abnormal SPECT myocardial perfusion study, inferior defect suspicious of ischemia, and ejection fraction reported 58%. Dated 12/19/2016, the patient had echocardiography 12/02/2016 that showed normal chamber size ejection fraction 55% to 60%. REVIEW OF SYSTEMS: As per HPI. PHYSICAL EXAMINATION: VITAL SIGNS: Height of the patient is 5 feet 11 inches. Weight of the patient is 250 pounds. Body mass index is 37 kg/m2. Heart rate is 70 and blood pressure 137/84. HEENT: PERRLA. Extraocular muscles intact. NECK: Supple. No carotid bruit or thyromegaly. CHEST: Clear to auscultation. HEART: S1 and S2 regular. ABDOMEN: Soft. EXTREMITIES: Clubbing and cyanosis negative. LABORATORY DATA: Blood work are pending. IMPRESSION: Diabetes, hypertension, hyperlipidemia, obesity, multiple vessel coronary artery disease, and abnormal stress test suggested cardiac catheterization. RECOMMENDATIONS: Risks, benefits, and alternatives discussed with the patient. We will proceed for cardiac catheterization and wait for blood workup. If the blood workup comes back as normal, we will proceed for cardiac catheterization. Interim, we will load with Plavix 300 mg now. We will also give a cocktail because the patient is allergic to IODINE, so we will give 100 mg of Solu-Cortef and 50 mg of Benadryl IV and Pepcid IV 40 mg. Risks, benefits, and alternatives discussed with the patient. The patient agreed. We will proceed for cardiac catheterization. Further recommendation after the cardiac catheterization. Thank you Dr. Lona Mansfield and Dr. Al for providing us the opportunity in taking care of the patient, Darrian Son. Marie Green MD
--- NOTE | 2017-03-20 04:53 | HP ---
REASON FOR ADMISSION: Left heart cath possible angioplasty, abnormal stress test. BRIEF CLINICAL HISTORY: This is a 61-year-old morbidly obese male with body mass index 36.3 kg/m2, diabetes more than 3 years, history of hypertension more than 14 years, complained of some vague type of chest pain and dyspnea on exertion. The patient underwent a stress test at [facility] dated 12/19/2016 that was abnormal, so the patient is scheduled for elective cardiac cath, possible angioplasty. The patient walked on the treadmill for 4 minutes and 41 seconds for Jose protocol, but stopped due to fatigue, achieved 92% of the predicted heart rate. No chest pain, no ST-T changes noted, but nuclear component read as probably abnormal stress myocardial perfusion study, reversible inferior defect suggestive of ischemia. Ejection fraction 40%-58% dated 12/19/2016. The patient is scheduled for elective cardiac cath, possible angioplasty. PAST MEDICAL HISTORY: Significant for diabetes more than three years, hypertension of 14 years and obesity. SOCIAL HISTORY: Denies any smoking. Denies any history of alcohol abuse. CURRENT MEDICATIONS: The patient is taking at home losartan 100 mg daily, insulin 50 units subcutaneously daily, aspirin 325 mg daily, metformin 1 g twice a day (1000 mg), Norvasc 10 mg daily, Amaryl 4 mg daily and alogliptin 12.5 mg p.o. b.i.d. with metformin. ALLERGIES: ALLERGY TO IODINE CONTAINING PRODUCT AND SHELLFISH. PREVIOUS CARDIAC WORKUP: As follows: The patient had a stress test as mentioned dated on 12/19/2016. The patient walked on the treadmill 4 minutes and 41 seconds, stopped because of the fatigue, achieved 92% of the predicted heart rate. No chest pain, no ST-T changes noted, but nuclear component read as abnormal myocardial perfusion study, ejection fraction 58%, inferior defect suggestive of ischemia, dated 12/19/2016. The patient had echocardiography 12/02/2016 that showed normal chamber size, ejection fraction 55%-60%. REVIEW OF SYSTEMS: As per HPI. PHYSICAL EXAMINATION: Rest of the examination as follows; VITAL SIGNS: Height of the patient is 5 feet 11 inches. Weight of the patient is 250 pounds. Body mass index is 37 kg/m2. Temperature afebrile, heart rate is 70 and blood pressure 137/87. HEENT: PERRLA. Extraocular muscles intact. NECK: Supple. No carotid bruit or thyromegaly. CHEST: Clear to auscultation. HEART: S1 and S2 regular. ABDOMEN: Soft. EXTREMITIES: Clubbing and cyanosis negative. LABORATORY DATA: Blood workup pending. IMPRESSION: Diabetes, hypertension, hyperlipidemia, morbid obesity, multiple risk factors for coronary artery disease and abnormal stress test cardiac catheterization. The patient is also ALLERGIC TO IODINE, so we will load with premedicated means with Solu-Cortef 100 mg, 50 of Benadryl and Pepcid of 40. Risks, benefits and alternatives explained with the patient. The patient agreed. We will proceed for cardiac catheterization. We will load with 300 mg Plavix and aspirin. Further recommendation depending upon hospital course. Thank you Dr. Dixon Mansfield and Dr. Al for providing us the opportunity in taking care of the patient, Darrian Son. Marie Green MD cc: DIXON Al MD
[2017-03-20] MEDS ORDERED: Lidocaine 2% Inj (20ml) ONE (07:14)
[2017-03-20] MEDS ORDERED: Iodixanol 320 MG/ML 200 ML BOTTLE IV ONE (07:16)
[2017-03-20] MEDS ORDERED: Nitroglycerin 50mg in D5W 50 MG/250 ML BOTTLE IV ONE (07:16)
[2017-03-20] MEDS ORDERED: HEPARIN SODIUM/NS 2,000 ML IV ONE (07:16)
[2017-03-20] MEDS ORDERED: Midazolam 2 MG/2 ML VIAL ONE ×2 (07:16→09:32)
[2017-03-20 07:31] LABS: BASO # 0.03 K/mm3 (0.0-2.0); BASO % 0.4 % (0.0-3.0); EOS # 0.4 (0.0-0.7); EOS % 5.6 % (1.5-5.0); GRAN # 4.21 (1.4-6.5); GRAN % 56.7 % (50.0-68.0); HEMOGLOBIN 12.9 g/dL (14.0-18.0); LYMPH # 2.2 (1.2-3.4); LYMPH % 29.4 % (22.0-35.0); MEAN CELL VOLUME 80.1 fl (80.0-105.0); MEAN CORPUSCULAR HEMOGLOBIN 26.4 pg (25.0-35.0); MEAN PLATELET VOLUME 9.7 fl (7.0-11.0); MONO # 0.6 (0.1-0.6); MONO % 7.9 % (1.0-6.0); RBC 4.88 10^6/uL (3.5-6.1); RED CELL DISTRIBUTION WIDTH 12.9 % (11.5-14.5); WHITE BLOOD COUNT 7.4 10^3/ul (4.5-11.0)
[2017-03-20 07:41] LABS: INR 1.13 (0.93-1.08); PARTIAL THROMBOPLASTIN TIME 31.9 Seconds (25.1-36.5)
[2017-03-20 08:16] LABS: BLOOD UREA NITROGEN 24 mg/dL (7-21); CALCIUM 9.5 mg/dL (8.4-10.5); GFR AFRICAN-AMERICAN > 60; GFR NON-AFRICAN AMERICAN > 60
[2017-03-20] MEDS ORDERED: Famotidine 20mg/50ml 20 MG/50 ML BAG IVPB ONE (08:17)
[2017-03-20] MEDS ORDERED: DiphenhydrAMINE 50 mg/ml Inj ONE (08:17)
[2017-03-20] MEDS ORDERED: Potassium Chloride 20 mEq ER Tab PO ONE (08:52)
[2017-03-20 10:13] VITALS: TEMP 97
[2017-03-20 12:20] VITALS: RESP 18
[2017-03-20 12:22] VITALS: O2SAT 94
[2017-03-20] MEDS ORDERED: Bacitracin 500 Units/gm Oint Foilpak UD TOP ONE (12:41)
[2017-03-20] MEDS ORDERED: Sodium Chloride 0.9% 1,000 ML IV SCH ×2 (12:45→13:00)
--- NOTE | 2017-03-20 13:07 | CARD ---
APPROVED REPORT EKG Measurement Heart [id number] <Conclusion> Normal sinus rhythm Minimal voltage criteria for LVH, may be normal variant Mild NSSTW changes
[2017-03-20] MEDS ORDERED: Bacitracin 500 Units/gm Oint Foilpak UD ONE (13:19)
[2017-03-20 13:42] VITALS: BP 142/85; PULSE 90
--- NOTE | 2017-03-20 16:29 | CARD ---
APPROVED REPORT Procedure(s) performed: Left Heart Catheterization HISTORY The patient is a 61 year-old male with a history of : most recent EF: 58%. (EF Method: RADIONUCLIDE), diabetes mellitus with insulin treatment , hypertension , dyslipidemia , Reversible inferior ischemia.. INDICATION The indication(s) include : positive stress test. CASE TECHNIQUE The patient was brought electively to the Cardiac Catheterization Laboratory in a fasting state and was prepped and draped in a sterile manner. The left wrist was infiltrated with 2% Lidocaine subcutaneous anesthesia. A 6FR GLIDESHEATH ACCESS KIT sheath was inserted into the left radial artery without difficulty. Coronary angiography was performed using coronary diagnostic catheters. The left coronary system was accessed and visualized with a Diagnostic ,5 Fr JL 4 catheter. The right coronary system was accessed and visualized with a Diagnostic ,5 Fr JR 4 catheter. The left ventricle was accessed and visualized with a 5 Fr Pigtail 145 (Angled) catheter. Left ventricular/Aortic Valve gradient assessed on pullback. Left ventriculogram was performed in DONG projection. Closure device was deployed with a Fr TR Band (Large) without any complications. The patient tolerated the procedure well and there were no complications associated with the procedure. Vessel Analysis The patient's coronary anatomy is right dominant. The left main coronary artery is a large size vessel with intimal irregularities and without significant stenosis. The left main bifurcates to the left anterior descending and circumflex. The left anterior descending artery is a medium size vessel with diffuse calcification noted throughout this vessel and without significant stenosis. There is a 55-60% stenosis in the very distal segment. Near apex diffusely diseased. The first diagonal branch is a medium size vessel with diffuse calcification noted throughout this vessel and without significant stenosis. The circumflex artery is a large size vessel without significant stenosis. The first obtuse marginal branch is a large size vessel with intimal irregularities and without significant stenosis. The right coronary artery is a large size vessel with intimal irregularities and without significant stenosis. The right posterior descending artery is a medium size vessel with diffuse calcification noted throughout this vessel and without significant stenosis. The right posterolateral branch is a medium size vessel with intimal irregularities and without significant stenosis. Left Ventricle The left ventricle is normal in size with normal contractility. There was no cardiomyopathy. The left ventricular ejection fraction is estimated to be 55-60%%. The left ventricular end diastolic pressure is 15-16 mmHg. There was no gradient across the aortic valve upon pullback. Conclusion Non Obstructive CAD limited to Very distal LAD near apex 55-60% diffusely diseased, not suitable for PCI. Preserved LV GFx. EF-55-60%, EDP-15-16 mmof hg. Recommendations Cardiac Rehabilitation Referral Aggressive Medical TherapyCardiac Risk Reduction Program Weight Loss Reduction Program Drs. Lona Wong/ Servando.
== END 2017-03-20 15:00 | disposition home or self-care (01) ==
LOC: CATH 06:52
PROVIDERS: ATTEND Internal Medicine Cardiovascular Disease
DX: I25.10 Atherosclerotic heart disease of native coronary artery without angina pectoris (principal); E66.01 Morbid (severe) obesity due to excess calories; Z68.36 Body mass index [BMI] 36.0-36.9, adult; E11.9 Type 2 diabetes mellitus without complications; I10 Essential (primary) hypertension; E78.5 Hyperlipidemia, unspecified
CPT/HCPCS: 36415; 80048; 82948; 85025; 85610; 85730; 86850; 86900; 93005; 93458; 99152; 99153; C1769; C1887 ×2; J1200; J1644 ×2; J2250; J2930; J3010; J7030; J7040